=== PATIENT | female | born 1960 ===

== ENCOUNTER 2016-11-06 13:26 | Emergency (ER) | payer BC ==
--- NOTE | 2016-11-06 15:33 | ED ORDER SUMMARY ---
..... Patient: SHARRON AYALA OrderSheet [facility] VisitID: [id number] [address] [place] [address] 56y, F Registration Date/Time: 11/06/2016 ORDER SHEET Weight: 72.5 kg (stated) Allergies: Compazine GENERAL ORDERS: MEDICATION ORDERS: Ibuprofen PO 400 mg (NOW) (15:30 11/06/2016 Alyson HOOVER) (15:59 [facility]) IV FLUIDS: ORDER SHEET NOTES: [Electronically signed by Kerry Hayes (16:06 11/06/2016)] [Electronically signed by Roscoe Carr MD (22:40 11/08/2016)] [Electronically locked/signed by Kerry Hayes (16:06 11/06/2016)]
--- NOTE | 2016-11-06 15:33 | ED NURSING NOTES ---
Clinical Report - Nurses [facility] [address] [place] [address] 11/06/2016 13:29 Patient: SHARRON AYALA TRIAGE Acuity: LEVEL 4. Chief Complaint: MOUTH SORE. 14:08 11/06/16. Alert. No acute distress. --14:08 Mary Tolbert R.N. 14:05 11/06/16. BP: 124/66. HR: 87. RR: 16. O2 saturation: 100% on room air. Temp: 98.6 F (oral). Pain level now 06/25. --14:08 Mary Tolbert R.N. Weight: 72.5 kg stated. Height/Length: 63 inches Per Patient. BMI: 28.3. --14:06 Mary Tolbert R.N. Medications None. --14:07 Mary Tolbert R.N. Allergies Compazine. --14:07 Mary Tolbert R.N. History ( c/o lump in right side of mouth and right shoulder pain. Both have been present for 6 weeks. Pt states she was seen at walk in clinic and they attempted to abraham lump in mouth but were unable to drain anything). Onset. (6 weeks ago). Treatment DAILY RELEASE AND DUPE PRINTER: None. SOCIAL HX: Never smoker. No alcohol use or drug use. ABUSE ASSESSMENT: Abuse assessment: The patient was asked "Do you feel safe in your home?". No report of abuse. FALL RISK ASSESSMENT: Fall risk assessment completed. No fall risk identified. NUTRITIONAL RISK ASSESSMENT: The nutritional risk assessment revealed no deficiencies. FUNCTIONAL ASSESSMENT: Functional assessment: no impairments noted. LEARNING NEEDS ASSESSMENT: The learning needs assessment revealed no barriers. SKIN INTEGRITY ASSESSMENT: Skin integrity risk assessment completed. No skin integrity risk identified. --14:08 Mary Tolbert R.N. PROBLEMS: Sprain. Radius Fracture. Costochondritis. Pedal Edema. Seborrheic Dermatitis. Lice. Abscess. Subungual Hematoma. Finger pain/injury? Rt middle . Wrist Fracture. Anemia. Gastroesophageal Reflux. Gastroenteritis. Renal Insufficiency. Abdominal Pain. Hemorrhoids. UTI - Urinary Tract Infection. Fall. Contusion. Gastritis. Peptic Ulcer Disease. --14:08 Mary Tolbert R.N. ADDITIONAL SURGERIES: Knee Prosthesis. Knee Surgery. Shoulder Surgery. --14:08 Mary Tolbert R.N. Interventions ID band on patient. To treatment room. --14:08 Mary Tolbert R.N. PHYSICAL ASSESSMENT 14:09 11/06/16. Ambulatory to room. GENERAL / NEURO / PSYCH: Alert. Oriented X 4. Appears in no acute distress. HEENT: Pharynx within normal limits. Voice within normal limits. No dental injury noted. ( swelling right cheek). Mucous membranes are pink. CVS: Capillary refill less than 2 seconds. SKIN: Skin is warm and dry. Normal skin turgor. --14:09 Mary Tolbert R.N. NURSING PROGRESS NOTES 14:23 11/06/16. The plan of care for this patient has been created. Patient gowned. Head of bed elevated. Call light placed in reach. Bed placed in lowest position. Brakes of bed on. --14:23 Mary Tolbert R.N. 15:30 11/06/2016 Ibuprofen PO 400 mg given. Allergies verified and confirmed 5 rights. --15:59 Kerry Hayes. DISPOSITION / DISCHARGE Departure time: 1605. Condition at departure: improved and stable. No learning barriers present. Discharge instructions provided and reviewed with the patient. Reviewed medication(s). Patient verbalized understanding. Written instructions provided in Setswana. The patient was discharged by the physician. She was discharged home. She left the Emergency Department ambulatory and via private vehicle. --16:06 Kerry Hayes 16:05 11/06/16. Pain level now 4/10. --16:06 Kerry Hayes. Locked/Released at 11/06/2016 16:06 by Kerry Hayes,
--- NOTE | 2016-11-06 15:33 | ED NURSING NOTES ---
Clinical Report - Nurses [facility] [address] [place] [address] 11/06/2016 13:29 Patient: SHARRON AYALA TRIAGE Acuity: LEVEL 4. Chief Complaint: MOUTH SORE. 14:08 11/06/16. Alert. No acute distress. --14:08 Mary Tolbert R.N. 14:05 11/06/16. BP: 124/66. HR: 87. RR: 16. O2 saturation: 100% on room air. Temp: 98.6 F (oral). Pain level now 06/25. --14:08 Mary Tolbert R.N. Weight: 72.5 kg stated. Height/Length: 63 inches Per Patient. BMI: 28.3. --14:06 Mary Tolbert R.N. Medications None. --14:07 Mary Tolbert R.N. Allergies Compazine. --14:07 Mary Tolbert R.N. History ( c/o lump in right side of mouth and right shoulder pain. Both have been present for 6 weeks. Pt states she was seen at walk in clinic and they attempted to abraham lump in mouth but were unable to drain anything). Onset. (6 weeks ago). Treatment PATIENT SERVICES ASSISTANT: None. SOCIAL HX: Never smoker. No alcohol use or drug use. ABUSE ASSESSMENT: Abuse assessment: The patient was asked "Do you feel safe in your home?". No report of abuse. FALL RISK ASSESSMENT: Fall risk assessment completed. No fall risk identified. NUTRITIONAL RISK ASSESSMENT: The nutritional risk assessment revealed no deficiencies. FUNCTIONAL ASSESSMENT: Functional assessment: no impairments noted. LEARNING NEEDS ASSESSMENT: The learning needs assessment revealed no barriers. SKIN INTEGRITY ASSESSMENT: Skin integrity risk assessment completed. No skin integrity risk identified. --14:08 Mary Tolbert R.N. PROBLEMS: Sprain. Radius Fracture. Costochondritis. Pedal Edema. Seborrheic Dermatitis. Lice. Abscess. Subungual Hematoma. Finger pain/injury? Rt middle . Wrist Fracture. Anemia. Gastroesophageal Reflux. Gastroenteritis. Renal Insufficiency. Abdominal Pain. Hemorrhoids. UTI - Urinary Tract Infection. Fall. Contusion. Gastritis. Peptic Ulcer Disease. --14:08 Mary Tolbert R.N. ADDITIONAL SURGERIES: Knee Prosthesis. Knee Surgery. Shoulder Surgery. --14:08 Mary Tolbert R.N. Interventions ID band on patient. To treatment room. --14:08 Mary Tolbert R.N. PHYSICAL ASSESSMENT 14:09 11/06/16. Ambulatory to room. GENERAL / NEURO / PSYCH: Alert. Oriented X 4. Appears in no acute distress. HEENT: Pharynx within normal limits. Voice within normal limits. No dental injury noted. ( swelling right cheek). Mucous membranes are pink. CVS: Capillary refill less than 2 seconds. SKIN: Skin is warm and dry. Normal skin turgor. --14:09 Mary Tolbert R.N. NURSING PROGRESS NOTES 14:23 11/06/16. The plan of care for this patient has been created. Patient gowned. Head of bed elevated. Call light placed in reach. Bed placed in lowest position. Brakes of bed on. --14:23 Mary Tolbert R.N. 15:30 11/06/2016 Ibuprofen PO 400 mg given. Allergies verified and confirmed 5 rights. --15:59 Kerry Hayes. DISPOSITION / DISCHARGE Departure time: 1605. Condition at departure: improved and stable. No learning barriers present. Discharge instructions provided and reviewed with the patient. Reviewed medication(s). Patient verbalized understanding. Written instructions provided in Kazakh. The patient was discharged by the physician. She was discharged home. She left the Emergency Department ambulatory and via private vehicle. --16:06 Kerry Hayes 16:05 11/06/16. Pain level now 4/10. --16:06 Kerry Hayes. Locked/Released at 11/06/2016 16:06 by Kerry Hayes,
--- NOTE | 2016-11-06 15:33 | ED ORDER SUMMARY ---
..... Patient: SHARRON AYALA OrderSheet [facility] VisitID: [id number] [address] [place] [address] 56y, F Registration Date/Time: 11/06/2016 ORDER SHEET Weight: 72.5 kg (stated) Allergies: Compazine GENERAL ORDERS: MEDICATION ORDERS: Ibuprofen PO 400 mg (NOW) (15:30 11/06/2016 Alyson HOOVER) (15:59 [facility]) IV FLUIDS: ORDER SHEET NOTES: [Electronically signed by Kerry Hayes (16:06 11/06/2016)] [Electronically signed by Roscoe Carr MD (22:40 11/08/2016)] [Electronically locked/signed by Kerry Hayes (16:06 11/06/2016)]
--- NOTE | 2016-11-06 15:33 | ED CLINICAL REPORT ---
Clinical Report - Physicians/Mid Levels [facility] [address] [place] [address] 11/06/2016 13:29 Patient: SHARRON AYALA Time Seen: 15:06. Arrived- By private vehicle. Historian- patient. HISTORY OF PRESENT ILLNESS Chief Complaint: LUMP IN MOUTH and RIGHT SHOULDER PAIN. At its maximum, severity described as moderate. When seen in the E.D., severity described as moderate. Modifying factors- (worse with toughing the mouth mass and moving the shoulder). This started several weeks ago and is still present. It was gradual in onset. No loss of appetite, headache or muscle aches. (1. The patient has had months of a smooth mouth mass. 2. She has had weeks of R shoulder pain without history of trauma. She has not tried home treatment.). Recent medical care: The patient was seen recently by a health care provider. ( [facility]). REVIEW OF SYSTEMS No fever, difficulty breathing or chest pain. PAST HISTORY PCP: [facility]. PROBLEMS: Sprain. Radius Fracture. Costochondritis. Pedal Edema. Seborrheic Dermatitis. Lice. Abscess. Subungual Hematoma. Finger pain/injury? Rt middle . Wrist Fracture. Anemia. Gastroesophageal Reflux. Gastroenteritis. Renal Insufficiency. Abdominal Pain. Hemorrhoids. UTI - Urinary Tract Infection. Fall. Contusion. Gastritis. Peptic Ulcer Disease. --14:08 Mary Tolbert RMarcus. ADDITIONAL SURGERIES: Knee Prosthesis. Knee Surgery. Shoulder Surgery. SOCIAL HISTORY Never smoker. ADDITIONAL NOTES The nursing notes have been reviewed. PHYSICAL EXAM Vital Signs: 11/06/2016 14:05 BP: 124/66. HR: 87. RR: 16. O2 saturation: 100%. Temp: 98.6 F. Appearance: Alert. No acute distress. Eyes: Eyes normal inspection. ENT: (5 mm pedunculated R buccal mucosal mass. Smooth and oval. Looks benign). Neck: No lymphadenopathy. Respiratory: Breath sounds normal. Extremities: Right shoulder: mild tenderness. Neurovascular intact distally. No erythema, swelling, abrasion, ecchymosis or deformity. No joint effusion. (Active and passive ROM R shoulder is painful.). PROGRESS AND PROCEDURES Course of Care: ED is not the proper venue for excising this mass as we have no pathology follow up system. I paged Dr Gruber to discuss the referral with him but he did not return my page. The arm is likely nothing more serious that tendonitis so a trial of Ibuprofen and re-check by PCP is warranted. Physical exam findings are unchanged. Disposition: Discharged. Condition: stable. CLINICAL IMPRESSION Acute tendonitis in the right shoulder. INTRAORAL POLYP. INSTRUCTIONS (TAKE IBUPROFEN 400 MG 4 TIMES A DAY FOR ONE WEEK THEN SEE YOUR CLINIC SEE THE SURGEON OR A DENTIST FOR EXCISION OF THE MOUTH POLYP). Understanding of the discharge instructions verbalized by patient. Follow-up with: Edwin Gruber MD, General Surgeon, , [facility], [address] [place] [address] (Electronically signed by Roscoe Carr MD 11/08/2016 22:40)
--- NOTE | 2016-11-06 15:33 | ED CLINICAL REPORT ---
Clinical Report - Physicians/Mid Levels [facility] [address] [facility] [place] [address] 11/06/2016 13:29 Patient: SHARRON AYALA Time Seen: 15:06. Arrived- By private vehicle. Historian- patient. HISTORY OF PRESENT ILLNESS Chief Complaint: LUMP IN MOUTH and RIGHT SHOULDER PAIN. At its maximum, severity described as moderate. When seen in the E.D., severity described as moderate. Modifying factors- (worse with toughing the mouth mass and moving the shoulder). This started several weeks ago and is still present. It was gradual in onset. No loss of appetite, headache or muscle aches. (1. The patient has had months of a smooth mouth mass. 2. She has had weeks of R shoulder pain without history of trauma. She has not tried home treatment.). Recent medical care: The patient was seen recently by a health care provider. ( [facility]). REVIEW OF SYSTEMS No fever, difficulty breathing or chest pain. PAST HISTORY PCP: [facility]. PROBLEMS: Sprain. Radius Fracture. Costochondritis. Pedal Edema. Seborrheic Dermatitis. Lice. Abscess. Subungual Hematoma. Finger pain/injury? Rt middle . Wrist Fracture. Anemia. Gastroesophageal Reflux. Gastroenteritis. Renal Insufficiency. Abdominal Pain. Hemorrhoids. UTI - Urinary Tract Infection. Fall. Contusion. Gastritis. Peptic Ulcer Disease. --14:08 Mary Tolbert RMarcus. ADDITIONAL SURGERIES: Knee Prosthesis. Knee Surgery. Shoulder Surgery. SOCIAL HISTORY Never smoker. ADDITIONAL NOTES The nursing notes have been reviewed. PHYSICAL EXAM Vital Signs: 11/06/2016 14:05 BP: 124/66. HR: 87. RR: 16. O2 saturation: 100%. Temp: 98.6 F. Appearance: Alert. No acute distress. Eyes: Eyes normal inspection. ENT: (5 mm pedunculated R buccal mucosal mass. Smooth and oval. Looks benign). Neck: No lymphadenopathy. Respiratory: Breath sounds normal. Extremities: Right shoulder: mild tenderness. Neurovascular intact distally. No erythema, swelling, abrasion, ecchymosis or deformity. No joint effusion. (Active and passive ROM R shoulder is painful.). PROGRESS AND PROCEDURES Course of Care: ED is not the proper venue for excising this mass as we have no pathology follow up system. I paged Dr Gruber to discuss the referral with him but he did not return my page. The arm is likely nothing more serious that tendonitis so a trial of Ibuprofen and re-check by PCP is warranted. Physical exam findings are unchanged. Disposition: Discharged. Condition: stable. CLINICAL IMPRESSION Acute tendonitis in the right shoulder. INTRAORAL POLYP. INSTRUCTIONS (TAKE IBUPROFEN 400 MG 4 TIMES A DAY FOR ONE WEEK THEN SEE YOUR CLINIC SEE THE SURGEON OR A DENTIST FOR EXCISION OF THE MOUTH POLYP). Understanding of the discharge instructions verbalized by patient. Follow-up with: Edwin Gruber MD, General Surgeon, , [facility], [address] [place] [address] (Electronically signed by Roscoe Carr MD 11/08/2016 22:40)
--- NOTE | 2016-11-08 22:40 | ED DISCHARGE INSTRUCTIONS ---
Patient: SHARRON AYALA General Instructions [facility] VisitID: [id number] [address] [place] [id number] 56y, F Registration Date/Time: 11/06/2016 Acute tendonitis in the right shoulder. INTRAORAL POLYP. INSTRUCTIONS (TAKE IBUPROFEN 400 MG 4 TIMES A DAY FOR ONE WEEK THEN SEE YOUR CLINIC SEE THE SURGEON OR A DENTIST FOR EXCISION OF THE MOUTH POLYP). Understanding of the discharge instructions verbalized by patient. Follow-up with: Edwin Gruber MD, General Surgeon, , [facility], [address] [facility] [address], [facility] [address] ADDITIONAL INFORMATION Tendonitis A tendon is the thick fibrous cord that joins muscle to bone and causes joints to move. Tendonitis is inflammation of the tendon which may be due to overuse, injury or infection. This usually involves the shoulders, forearm, wrist, hands and foot. Symptoms include local pain, swelling and tenderness to the touch. Movement of the involved joint increases the pain. Tendonitis requires about 4 to 6 weeks to heal. It is treated by preventing motion of the tendon with a splint or brace and use of anti-inflammatory medicine. Home Care: Apply an ice pack (ice cubes in a plastic bag, wrapped in a towel) over the injured area for 20 minutes every 1-2 hours the first day for pain relief. Continue this 3-4 times a day until the pain and swelling goes away. Rest the inflamed joint and protect it from movement. You may use ibuprofen (Motrin, Advil) or naproxen (Aleve, Naprosyn) to treat pain and inflammation, unless another medicine was prescribed. If you can't take these medicines, acetaminophen (Tylenol) may help with the pain, but does not treat inflammation. [NOTE : If you have chronic liver or kidney disease or ever had a stomach ulcer or GI bleeding, talk with your doctor before using these medicines.] As your symptoms improve, begin gradual motion at the involved joint. Follow Up With Your Doctor If Not Improving After The First Five Days Of Treatment. Get Prompt Medical Attention If Any Of The Following Occur: Redness over the painful area Increasing pain or swelling at the joint Fever of 100.4F (38C) or higher, or as directed by your healthcare provider You have been given the following additional information: Tendonitis (Electronically signed by Roscoe Carr MD 11/08/2016 22:40)
--- NOTE | 2016-11-08 22:40 | ED MED RECONCILIATION SUMMARY ---
Patient: SHARRON AYALA Medication Reconciliation Report [facility] VisitID: [id number] [address] [place] [address] 56y, F Registration Date/Time: 11/06/2016 Weight: 72.5 kg Height/Length: 63 in. BMI: 28.3 ALLERGIES: Compazine The patient's Home Medications are listed below: NONE. The source(s) of the original Home Medication information: Not obtained. The following Medications were given to the patient in the Emergency Department: Ibuprofen [PO] PO 400 mg, administered: 11/06/2016 3:30:00 PM The following Medications were prescribed to the patient: None.
--- NOTE | 2016-11-08 22:40 | ED DISCHARGE INSTRUCTIONS ---
Patient: SHARRON AYALA General Instructions [facility] VisitID: [id number] [address] [place] [id number] 56y, F Registration Date/Time: 11/06/2016 Acute tendonitis in the right shoulder. INTRAORAL POLYP. INSTRUCTIONS (TAKE IBUPROFEN 400 MG 4 TIMES A DAY FOR ONE WEEK THEN SEE YOUR CLINIC SEE THE SURGEON OR A DENTIST FOR EXCISION OF THE MOUTH POLYP). Understanding of the discharge instructions verbalized by patient. Follow-up with: Edwin Gruber MD, General Surgeon, , [facility], [address] [facility] [address], [facility] [address] ADDITIONAL INFORMATION Tendonitis A tendon is the thick fibrous cord that joins muscle to bone and causes joints to move. Tendonitis is inflammation of the tendon which may be due to overuse, injury or infection. This usually involves the shoulders, forearm, wrist, hands and foot. Symptoms include local pain, swelling and tenderness to the touch. Movement of the involved joint increases the pain. Tendonitis requires about 4 to 6 weeks to heal. It is treated by preventing motion of the tendon with a splint or brace and use of anti-inflammatory medicine. Home Care: Apply an ice pack (ice cubes in a plastic bag, wrapped in a towel) over the injured area for 20 minutes every 1-2 hours the first day for pain relief. Continue this 3-4 times a day until the pain and swelling goes away. Rest the inflamed joint and protect it from movement. You may use ibuprofen (Motrin, Advil) or naproxen (Aleve, Naprosyn) to treat pain and inflammation, unless another medicine was prescribed. If you can't take these medicines, acetaminophen (Tylenol) may help with the pain, but does not treat inflammation. [NOTE : If you have chronic liver or kidney disease or ever had a stomach ulcer or GI bleeding, talk with your doctor before using these medicines.] As your symptoms improve, begin gradual motion at the involved joint. Follow Up With Your Doctor If Not Improving After The First Five Days Of Treatment. Get Prompt Medical Attention If Any Of The Following Occur: Redness over the painful area Increasing pain or swelling at the joint Fever of 100.4F (38C) or higher, or as directed by your healthcare provider You have been given the following additional information: Tendonitis (Electronically signed by Roscoe Carr MD 11/08/2016 22:40)
--- NOTE | 2016-11-08 22:40 | ED MAR SUMMARY ---
..... Medication Administration Record [facility] [address] [place] [address] Patient: SHARRON AYALA Visit ID: [id number] 56y, F Weight: 72.5 kg Height/Length: 63 in BMI: 28.3 ALLERGIES: Compazine Given 15:30 11/06/2016 Kerry Hayes, Medication Administered: IBUPROFEN [PO], Dose: 400 mg PO. Medication Ordered: Ibuprofen PO 400 mg (NOW).
--- NOTE | 2016-11-08 22:40 | ED MED RECONCILIATION SUMMARY ---
Patient: SHARRON AYALA Medication Reconciliation Report [facility] VisitID: [id number] [address] [place] [address] 56y, F Registration Date/Time: 11/06/2016 Weight: 72.5 kg Height/Length: 63 in. BMI: 28.3 ALLERGIES: Compazine The patient's Home Medications are listed below: NONE. The source(s) of the original Home Medication information: Not obtained. The following Medications were given to the patient in the Emergency Department: Ibuprofen [PO] PO 400 mg, administered: 11/06/2016 3:30:00 PM The following Medications were prescribed to the patient: None.
--- NOTE | 2016-11-08 22:40 | ED MAR SUMMARY ---
..... Medication Administration Record [facility] [address] [place] [address] Patient: SHARRON AYALA Visit ID: [id number] 56y, F Weight: 72.5 kg Height/Length: 63 in BMI: 28.3 ALLERGIES: Compazine Given 15:30 11/06/2016 Kerry Hayes, Medication Administered: IBUPROFEN [PO], Dose: 400 mg PO. Medication Ordered: Ibuprofen PO 400 mg (NOW).
== END 2016-11-06 16:05 | disposition home or self-care (01) ==
LOC: ED SRH 13:26
DX: M75.81 Other shoulder lesions, right shoulder (principal); K06.8 Other specified disorders of gingiva and edentulous alveolar ridge; Z88.8 Allergy status to other drugs, medicaments and biological substances

== ENCOUNTER 2016-12-12 16:47 | Emergency (ER) | payer BC ==
--- NOTE | 2016-12-12 17:19 | ED CLINICAL REPORT ---
Clinical Report - Physicians/Mid Levels [facility] [address] [place] [address] 12/12/2016 16:50 [id number] Time Seen: 17:06 Dec 12 2016. Arrived- By private vehicle. Historian- patient. HISTORY OF PRESENT ILLNESS Chief Complaint: DENTAL PAIN. This started just prior to arrival and is still present. Pain described as mild. (patient status post dental procedure on the , has had pain since, reports insertion of partial teeth/ bridges. NO diff swallowing. Unable to find ride to return to dentist. No cough. No new fevers/ chills. No facial swelling. No rash.). REVIEW OF SYSTEMS No fever, cough, difficulty breathing, abdominal pain or headache. No joint pain. All systems otherwise negative, except as recorded above. PAST HISTORY Problems: Tendonitis. Sprain. Radius Fracture. Costochondritis. Pedal Edema. Seborrheic Dermatitis. Lice. Abscess. Subungual Hematoma. Finger pain/injury? Rt middle . Wrist Fracture. Tetanus Status. Anemia. Gastroesophageal Reflux. Gastroenteritis. Immunizations. Renal Insufficiency. Abdominal Pain. Hemorrhoids. UTI - Urinary Tract Infection. Fall. Contusion. Gastritis. Peptic Ulcer Disease. LNMP - Last Normal Menstrual Period. Additional Surgeries: Knee Prosthesis. Knee Surgery. Shoulder Surgery. Medications: None. Allergies: Compazine. SOCIAL HISTORY Never smoker. No alcohol use or drug use. ADDITIONAL NOTES The nursing notes have been reviewed. PHYSICAL EXAM Vital Signs: 12/12/2016 17:22 BP: 124/68. HR: 72. RR: 16. O2 saturation: 100%. Temp: 98.2 F. Pain level now: 5/10. Appearance: Alert. No acute distress. Head: Normal external inspection. ENT: Dental tenderness (right side lower). Nose normal. Lips normal. No trismus present. Neck: Trachea midline. No adenopathy. No thyromegaly. CVS: Normal heart rate and rhythm. PMI not displaced laterally. Respiratory: No respiratory distress. Breath sounds normal. No rales. Skin: Normal skin color. PROGRESS AND PROCEDURES Course of Care: patient afebrile with no signs of Mehran angina. No cough. Tolerating her own secretions well. Stable. Follow up outpatient. Patient is stable. Patient/family counseled. Disposition: Discharged. CLINICAL IMPRESSION Moderate dental pain. INSTRUCTIONS Drink plenty of fluids. Prescription Medications: Hydrocodone/APAP 5mg / 325mg: take 1 orally every 6 hours as needed for pain. Dispense ten (10). No refill. Amoxicillin 500 mg tablets: Take 1 orally every 8 hours for 10 days. Dispense thirty (30). No refills. Follow-up: Follow up with a dentist. (Electronically signed by Brooklynn Zhao P.A.-C 12/12/2016 17:59)
--- NOTE | 2016-12-12 17:19 | ED NURSING NOTES ---
Clinical Report - Nurses [facility] [place] [address] 12/12/2016 16:50 Patient: SHARRON AYALA TRIAGE Triage time 16:57. Acuity: LEVEL 4. Chief Complaint: (MOUTH PAIN). 16:58 12/12/16. 16:58 12/12/16. Alert. No acute distress. DEN COMA SCORE: Den Coma Scale: 15- eyes open spontaneously (4); best verbal response- oriented x 4 (5); best motor response- obeys commands (6). REVISED TRAUMA SCORE: Revised trauma score. --17:01 Rosas Hebert R.N. 16:57 12/12/16. BP: 136/67. HR: 79. RR: 14. O2 saturation: 100% on room air. Temp: 98 F (oral). Pain level now: 06/25. --17:01 Rosas Hebert R.N. Weight: 72.5 kg stated. Height/Length: 63 inches Per Patient. BMI: 28.3. --16:57 Rosas Hebert R.N. Medications None. --16:58 Rosas Hebert R.N. Medication/allergy information source: the patient. --17:01 Rosas Hebert R.N. Allergies Compazine. --16:58 Rosas Hebert R.N. History Arrived by private vehicle, and accompanied by family. Primary physician (AMENA PALMER). 16:58 12/12/16. ( Mouth pain since Saturday, pt had a dental procedure completed.). Treatment AUTOMOTIVE COLLISION ESTIMATOR: (T3 and Motrin). PAST MEDICAL HX: Immunizations not up to date. SOCIAL HX: Never smoker. No alcohol use or drug use. No infectious disease exposure. ABUSE ASSESSMENT: No report of abuse. FALL RISK ASSESSMENT: Fall risk assessment completed. No fall risk identified. NUTRITIONAL RISK ASSESSMENT: The nutritional risk assessment revealed no deficiencies. FUNCTIONAL ASSESSMENT: Functional assessment: no impairments noted. LEARNING NEEDS ASSESSMENT: The learning needs assessment revealed no barriers. SKIN INTEGRITY ASSESSMENT: Skin integrity risk assessment completed. No skin integrity risk identified. --17:01 Rosas Hebert R.N. PROBLEMS: Tendonitis. Sprain. Radius Fracture. Costochondritis. Pedal Edema. Seborrheic Dermatitis. Lice. Abscess. Subungual Hematoma. Finger pain/injury? Rt middle . Wrist Fracture. Tetanus Status. Anemia. Gastroesophageal Reflux. Gastroenteritis. Renal Insufficiency. Abdominal Pain. Hemorrhoids. UTI - Urinary Tract Infection. Fall. Contusion. Gastritis. Peptic Ulcer Disease. --16:59 Rosas Hebert R.N. ADDITIONAL SURGERIES: Knee Prosthesis. Knee Surgery. Shoulder Surgery. --16:59 Rosas Hebert R.N. Assessment 16:58 12/12/16. --17:01 Rosas Hebert R.N. Interventions 16:58 12/12/16. 16:58 12/12/16. ID and allergy band on patient. To treatment room. --17:01 Rosas Hebert R.N. PHYSICAL ASSESSMENT 16:59 12/12/16. Ambulatory to room. GENERAL / NEURO / PSYCH: Alert. Oriented X 4. Appears in no acute distress. RESPIRATORY: Respirations not labored. CVS: Capillary refill less than 2 seconds. Pulses within normal limits. SKIN: Skin is warm and dry. --16:59 Rosas Hebert R.N. NURSING PROGRESS NOTES 16:59 12/12/16. The plan of care for this patient has been created. Head of bed elevated. Two patient identifiers checked. Call light placed in reach. Side rails up x 2. Brakes of bed on. Brakes of chair on. --16:59 Rosas Hebert R.N. 16:59 12/12/16. Patient ready for evaluation- chart flagged and notification provided. --16:59 Rosas Hebert R.N. DISPOSITION / DISCHARGE 17:23 12/12/16. Condition at departure: improved. The goals identified in the patient's plan of care were met. No learning barriers present. Discharge instructions provided and reviewed with the patient. Reviewed warnings. Reviewed medication(s). Treatments reviewed. Patient verbalized understanding. Written instructions provided in Slovenian. The patient was discharged by the physician. She was discharged home and accompanied by family. She left the Emergency Department ambulatory and via private vehicle. Family member driving. FALL RISK ASSESSMENT: Fall risk assessment completed. No fall risk identified. --17:23 Rosas Hebert R.N. 17:22 12/12/16. BP: 124/68. HR: 72. RR: 16. O2 saturation: 100% on room air. Temp: 98.2 F (oral). Pain level now: 10. --17:23 Rosas Hebert R.N. 17:23 12/12/16. Departure time: 17:23. --17:23 Rosas Hebert R.N. Locked/Released at 12/12/2016 17:28 by Rosas Hebert R.N.
--- NOTE | 2016-12-12 17:19 | ED NURSING NOTES ---
Clinical Report - Nurses [facility] [place] [address] 12/12/2016 16:50 Patient: SHARRON AYALA TRIAGE Triage time 16:57. Acuity: LEVEL 4. Chief Complaint: (MOUTH PAIN). 16:58 12/12/16. 16:58 12/12/16. Alert. No acute distress. DEN COMA SCORE: Den Coma Scale: 15- eyes open spontaneously (4); best verbal response- oriented x 4 (5); best motor response- obeys commands (6). REVISED TRAUMA SCORE: Revised trauma score. --17:01 Rosas Hebert R.N. 16:57 12/12/16. BP: 136/67. HR: 79. RR: 14. O2 saturation: 100% on room air. Temp: 98 F (oral). Pain level now: 06/25. --17:01 Rosas Hebert R.N. Weight: 72.5 kg stated. Height/Length: 63 inches Per Patient. BMI: 28.3. --16:57 Rosas Hebert R.N. Medications None. --16:58 Rosas Hebert R.N. Medication/allergy information source: the patient. --17:01 Rosas Hebert R.N. Allergies Compazine. --16:58 Rosas Hebert R.N. History Arrived by private vehicle, and accompanied by family. Primary physician (AMENA PALMER). 16:58 12/12/16. ( Mouth pain since Saturday, pt had a dental procedure completed.). Treatment DIRECTOR RADIO: (T3 and Motrin). PAST MEDICAL HX: Immunizations not up to date. SOCIAL HX: Never smoker. No alcohol use or drug use. No infectious disease exposure. ABUSE ASSESSMENT: No report of abuse. FALL RISK ASSESSMENT: Fall risk assessment completed. No fall risk identified. NUTRITIONAL RISK ASSESSMENT: The nutritional risk assessment revealed no deficiencies. FUNCTIONAL ASSESSMENT: Functional assessment: no impairments noted. LEARNING NEEDS ASSESSMENT: The learning needs assessment revealed no barriers. SKIN INTEGRITY ASSESSMENT: Skin integrity risk assessment completed. No skin integrity risk identified. --17:01 Rosas Hebert R.N. PROBLEMS: Tendonitis. Sprain. Radius Fracture. Costochondritis. Pedal Edema. Seborrheic Dermatitis. Lice. Abscess. Subungual Hematoma. Finger pain/injury? Rt middle . Wrist Fracture. Tetanus Status. Anemia. Gastroesophageal Reflux. Gastroenteritis. Renal Insufficiency. Abdominal Pain. Hemorrhoids. UTI - Urinary Tract Infection. Fall. Contusion. Gastritis. Peptic Ulcer Disease. --16:59 Rosas Hebert R.N. ADDITIONAL SURGERIES: Knee Prosthesis. Knee Surgery. Shoulder Surgery. --16:59 Rosas Hebert R.N. Assessment 16:58 12/12/16. --17:01 Rosas Hebert R.N. Interventions 16:58 12/12/16. 16:58 12/12/16. ID and allergy band on patient. To treatment room. --17:01 Rosas Hebert R.N. PHYSICAL ASSESSMENT 16:59 12/12/16. Ambulatory to room. GENERAL / NEURO / PSYCH: Alert. Oriented X 4. Appears in no acute distress. RESPIRATORY: Respirations not labored. CVS: Capillary refill less than 2 seconds. Pulses within normal limits. SKIN: Skin is warm and dry. --16:59 Rosas Hebert R.N. NURSING PROGRESS NOTES 16:59 12/12/16. The plan of care for this patient has been created. Head of bed elevated. Two patient identifiers checked. Call light placed in reach. Side rails up x 2. Brakes of bed on. Brakes of chair on. --16:59 Rosas Hebert R.N. 16:59 12/12/16. Patient ready for evaluation- chart flagged and notification provided. --16:59 Rosas Hebert R.N. DISPOSITION / DISCHARGE 17:23 12/12/16. Condition at departure: improved. The goals identified in the patient's plan of care were met. No learning barriers present. Discharge instructions provided and reviewed with the patient. Reviewed warnings. Reviewed medication(s). Treatments reviewed. Patient verbalized understanding. Written instructions provided in Welsh. The patient was discharged by the physician. She was discharged home and accompanied by family. She left the Emergency Department ambulatory and via private vehicle. Family member driving. FALL RISK ASSESSMENT: Fall risk assessment completed. No fall risk identified. --17:23 Rosas Hebert R.N. 17:22 12/12/16. BP: 124/68. HR: 72. RR: 16. O2 saturation: 100% on room air. Temp: 98.2 F (oral). Pain level now: 10. --17:23 Rosas Hebert R.N. 17:23 12/12/16. Departure time: 17:23. --17:23 Rosas Hebert R.N. Locked/Released at 12/12/2016 17:28 by Rosas Hebert R.N.
--- NOTE | 2016-12-12 17:19 | ED CLINICAL REPORT ---
Clinical Report - Physicians/Mid Levels [facility] [address] [place] [address] 12/12/2016 16:50 [id number] Time Seen: 17:06 Dec 12 2016. Arrived- By private vehicle. Historian- patient. HISTORY OF PRESENT ILLNESS Chief Complaint: DENTAL PAIN. This started just prior to arrival and is still present. Pain described as mild. (patient status post dental procedure on the , has had pain since, reports insertion of partial teeth/ bridges. NO diff swallowing. Unable to find ride to return to dentist. No cough. No new fevers/ chills. No facial swelling. No rash.). REVIEW OF SYSTEMS No fever, cough, difficulty breathing, abdominal pain or headache. No joint pain. All systems otherwise negative, except as recorded above. PAST HISTORY Problems: Tendonitis. Sprain. Radius Fracture. Costochondritis. Pedal Edema. Seborrheic Dermatitis. Lice. Abscess. Subungual Hematoma. Finger pain/injury? Rt middle . Wrist Fracture. Tetanus Status. Anemia. Gastroesophageal Reflux. Gastroenteritis. Immunizations. Renal Insufficiency. Abdominal Pain. Hemorrhoids. UTI - Urinary Tract Infection. Fall. Contusion. Gastritis. Peptic Ulcer Disease. LNMP - Last Normal Menstrual Period. Additional Surgeries: Knee Prosthesis. Knee Surgery. Shoulder Surgery. Medications: None. Allergies: Compazine. SOCIAL HISTORY Never smoker. No alcohol use or drug use. ADDITIONAL NOTES The nursing notes have been reviewed. PHYSICAL EXAM Vital Signs: 12/12/2016 17:22 BP: 124/68. HR: 72. RR: 16. O2 saturation: 100%. Temp: 98.2 F. Pain level now: 5/10. Appearance: Alert. No acute distress. Head: Normal external inspection. ENT: Dental tenderness (right side lower). Nose normal. Lips normal. No trismus present. Neck: Trachea midline. No adenopathy. No thyromegaly. CVS: Normal heart rate and rhythm. PMI not displaced laterally. Respiratory: No respiratory distress. Breath sounds normal. No rales. Skin: Normal skin color. PROGRESS AND PROCEDURES Course of Care: patient afebrile with no signs of Mehran angina. No cough. Tolerating her own secretions well. Stable. Follow up outpatient. Patient is stable. Patient/family counseled. Disposition: Discharged. CLINICAL IMPRESSION Moderate dental pain. INSTRUCTIONS Drink plenty of fluids. Prescription Medications: Hydrocodone/APAP 5mg / 325mg: take 1 orally every 6 hours as needed for pain. Dispense ten (10). No refill. Amoxicillin 500 mg tablets: Take 1 orally every 8 hours for 10 days. Dispense thirty (30). No refills. Follow-up: Follow up with a dentist. (Electronically signed by Brooklynn Zhao P.A.-C 12/12/2016 17:59)
--- NOTE | 2016-12-12 17:59 | ED MED RECONCILIATION SUMMARY ---
Patient: SHARRON AYALA Medication Reconciliation Report [facility] VisitID: [id number] [address] [place] [address] 56y, F Registration Date/Time: 12/12/2016 Weight: 72.5 kg Height/Length: 63 in. BMI: 28.3 ALLERGIES: Compazine The patient's Home Medications are listed below: NONE. The source(s) of the original Home Medication information: patient The following Medications were given to the patient in the Emergency Department: None. The following Medications were prescribed to the patient: Hydrocodone/APAP 5mg / 325mg: take 1 orally every 6 hours as needed for pain. Dispense ten (10). No refill. -- Brooklynn Zhao, P.A.-Delfino Amoxicillin 500 mg tablets: Take 1 orally every 8 hours for 10 days. Dispense thirty (30). No refills. -- Brooklynn Zhao, P.A.-C
--- NOTE | 2016-12-12 17:59 | ED DISCHARGE INSTRUCTIONS ---
Patient: SHARRON AYALA General Instructions [facility] VisitID: [id number] [place] [address] 56y, F Registration Date/Time: 12/12/2016 Moderate dental pain. INSTRUCTIONS Drink plenty of fluids. Prescription Medications: Hydrocodone/APAP 5mg / 325mg: take 1 orally every 6 hours as needed for pain. Dispense ten (10). No refill. Amoxicillin 500 mg tablets: Take 1 orally every 8 hours for 10 days. Dispense thirty (30). No refills. Follow-up: Follow up with a dentist. ADDITIONAL INFORMATION Dental Pain A crack or cavity in the tooth, which exposes the sensitive inner area of the tooth can cause tooth pain. An infection in the gum or the root of the tooth can cause pain and swelling. The pain is often made worse by drinking hot or cold fluids, or biting on hard foods. Pain may spread from the tooth to the ear or jaw on the same side. Home Care: Avoid hot and cold foods and liquids since your tooth may be sensitive to temperature changes. If your tooth is chipped or cracked, or if there is a large open cavity, apply OIL OF CLOVES (available [id number]-[id number] in drug stores) directly to the tooth to reduce pain. Some pharmacies carry an [id number] "toothache kit." This contains a paste, which can be applied over the exposed tooth to decrease sensitivity. A cold pack on your jaw over the sore area may help reduce pain. You may use acetaminophen (Tylenol) or ibuprofen (Motrin, Advil) to control pain, unless another medicine was prescribed. [ NOTE: If you have chronic liver or kidney disease or ever had a stomach ulcer or GI bleeding, talk with your doctor before using these medicines.] If you have signs of an infection, an antibiotic will be given. Take it as directed. Follow-Up as directed with a dentist. Your pain may go away with the treatment given. However, only a dentist can fully evaluate and treat the cause and prevent the pain from coming back again. TOOTHACHE IS A SIGN OF DISEASE IN YOUR TOOTH AND SHOULD BE EXAMINED AND TREATED BY A DENTIST. Get Prompt Medical Attention if any of the following occur: Your face becomes swollen or red Pain worsens or spreads to the neck Fever over 100.4 F (38.0 C) Unusual drowsiness; headache or stiff neck; weakness or fainting Pus drains from the tooth Difficulty swallowing or breathing Hydrocodone Bitartrate, Acetaminophen Oral tablet What is this medicine? ACETAMINOPHEN; HYDROCODONE (a set a ZAHIDA holden fen; william droe KOE done) is a pain reliever. It is used to treat mild to moderate pain. How should I use this medicine? Take this medicine by mouth. Swallow it with a full glass of water. Follow the directions on the prescription label. If the medicine upsets your stomach, take the medicine with food or milk. Do not take more than you are told to take. Talk to your supply chain procurement manager regarding the use of this medicine in children. This medicine is not approved for use in children. What side effects may I notice from receiving this medicine? Side effects that you should report to your doctor or health healthcare project manager as soon as possible: allergic reactions like skin rash, itching or hives, swelling of the face, lips, or tongue breathing problems confusion feeling faint or lightheaded, falls stomach pain yellowing of the eyes or skin Side effects that usually do not require medical attention (report to your doctor or health healthcare project manager if they continue or are bothersome): nausea, vomiting stomach upset What may interact with this medicine? alcohol antihistamines isoniazid medicines for depression, anxiety, or psychotic disturbances medicines for sleep muscle relaxants naltrexone narcotic medicines (opiates) for pain phenobarbital ritonavir tramadol What if I miss a dose? If you miss a dose, take it as soon as you can. If it is almost time for your next dose, take only that dose. Do not take double or extra doses. Where should I keep my medicine? Keep out of the reach of children. This medicine can be abused. Keep your medicine in a safe place to protect it from theft. Do not share this medicine with anyone. Selling or giving away this medicine is dangerous and against the law. Store at room temperature between 15 and 30 degrees C (59 and 86 degrees F). Protect from light. Keep container tightly closed. Throw away any unused medicine after the expiration date. Discard unused medicine and used packaging carefully. Pets and children can be harmed if they find used or lost packages. What should I tell my health care provider before I take this medicine? They need to know if you have any of these conditions: brain tumor Crohn's disease, inflammatory bowel disease, or ulcerative colitis drink more than 3 alcohol-containing drinks per day drug abuse or addiction head injury heart or circulation problems kidney disease or problems going to the bathroom liver disease lung disease, asthma, or breathing problems an unusual or allergic reaction to acetaminophen, hydrocodone, other opioid analgesics, other medicines, foods, dyes, or preservatives or trying to get breast-feeding What should I watch for while using this medicine? Tell your doctor or health healthcare project manager if your pain does not go away, if it gets worse, or if you have new or a different type of pain. You may develop tolerance to the medicine. Tolerance means that you will need a higher dose of the medicine for pain relief. Tolerance is normal and is expected if you take the medicine for a long time. Do not suddenly stop taking your medicine because you may develop a severe reaction. Your body becomes used to the medicine. This does NOT mean you are addicted. Addiction is a behavior related to getting and using a drug for a non-medical reason. If you have pain, you have a medical reason to take pain medicine. Your doctor will tell you how much medicine to take. If your doctor wants you to stop the medicine, the dose will be slowly lowered over time to avoid any side effects. You may get drowsy or dizzy when you first start taking the medicine or change doses. Do not drive, use machinery, or do anything that may be dangerous until you know how the medicine affects you. Stand or sit up slowly. There are different types of narcotic medicines (opiates) for pain. If you take more than one type at the same time, you may have more side effects. Give your health care provider a list of all medicines you use. Your doctor will tell you how much medicine to take. Do not take more medicine than directed. Call emergency for help if you have problems breathing. The medicine will cause constipation. Try to have a bowel movement at least every 2 to 3 days. If you do not have a bowel movement for 3 days, call your doctor or health healthcare project manager. Too much acetaminophen can be very dangerous. Do not take Tylenol (acetaminophen) or medicines that contain acetaminophen with this medicine. Many non-prescription medicines contain acetaminophen. Always read the labels carefully. You have been given the following additional information: Dental Pain Hydrocodone Bitartrate, Acetaminophen Oral tablet (Electronically signed by Brooklynn Zhao P.A.-C 12/12/2016 17:59)
--- NOTE | 2016-12-12 17:59 | ED MED RECONCILIATION SUMMARY ---
Patient: SHARRON AYALA Medication Reconciliation Report [facility] VisitID: [id number] [address] [place] [address] 56y, F Registration Date/Time: 12/12/2016 Weight: 72.5 kg Height/Length: 63 in. BMI: 28.3 ALLERGIES: Compazine The patient's Home Medications are listed below: NONE. The source(s) of the original Home Medication information: patient The following Medications were given to the patient in the Emergency Department: None. The following Medications were prescribed to the patient: Hydrocodone/APAP 5mg / 325mg: take 1 orally every 6 hours as needed for pain. Dispense ten (10). No refill. -- Brooklynn Zhao, P.A.-Delfino Amoxicillin 500 mg tablets: Take 1 orally every 8 hours for 10 days. Dispense thirty (30). No refills. -- Brooklynn Zhao, P.A.-C
--- NOTE | 2016-12-12 17:59 | ED MAR SUMMARY ---
..... Medication Administration Record [facility] [address] [place], [place] [id number] Patient: SHARRON AYALA Visit ID: [id number] 56y, F Weight: 72.5 kg Height/Length: 63 in BMI: 28.3 ALLERGIES: Compazine
--- NOTE | 2016-12-12 17:59 | ED MAR SUMMARY ---
..... Medication Administration Record [facility] [address] [place], [place] [id number] Patient: SHARRON AYALA Visit ID: [id number] 56y, F Weight: 72.5 kg Height/Length: 63 in BMI: 28.3 ALLERGIES: Compazine
--- NOTE | 2016-12-12 17:59 | ED DISCHARGE INSTRUCTIONS ---
Patient: SHARRON AYALA General Instructions [facility] VisitID: [id number] [place] [address] 56y, F Registration Date/Time: 12/12/2016 Moderate dental pain. INSTRUCTIONS Drink plenty of fluids. Prescription Medications: Hydrocodone/APAP 5mg / 325mg: take 1 orally every 6 hours as needed for pain. Dispense ten (10). No refill. Amoxicillin 500 mg tablets: Take 1 orally every 8 hours for 10 days. Dispense thirty (30). No refills. Follow-up: Follow up with a dentist. ADDITIONAL INFORMATION Dental Pain A crack or cavity in the tooth, which exposes the sensitive inner area of the tooth can cause tooth pain. An infection in the gum or the root of the tooth can cause pain and swelling. The pain is often made worse by drinking hot or cold fluids, or biting on hard foods. Pain may spread from the tooth to the ear or jaw on the same side. Home Care: Avoid hot and cold foods and liquids since your tooth may be sensitive to temperature changes. If your tooth is chipped or cracked, or if there is a large open cavity, apply OIL OF CLOVES (available [id number] in drug stores) directly to the tooth to reduce pain. Some pharmacies carry an [id number] "toothache kit." This contains a paste, which can be applied over the exposed tooth to decrease sensitivity. A cold pack on your jaw over the sore area may help reduce pain. You may use acetaminophen (Tylenol) or ibuprofen (Motrin, Advil) to control pain, unless another medicine was prescribed. [ NOTE: If you have chronic liver or kidney disease or ever had a stomach ulcer or GI bleeding, talk with your doctor before using these medicines.] If you have signs of an infection, an antibiotic will be given. Take it as directed. Follow-Up as directed with a dentist. Your pain may go away with the treatment given. However, only a dentist can fully evaluate and treat the cause and prevent the pain from coming back again. TOOTHACHE IS A SIGN OF DISEASE IN YOUR TOOTH AND SHOULD BE EXAMINED AND TREATED BY A DENTIST. Get Prompt Medical Attention if any of the following occur: Your face becomes swollen or red Pain worsens or spreads to the neck Fever over 100.4 F (38.0 C) Unusual drowsiness; headache or stiff neck; weakness or fainting Pus drains from the tooth Difficulty swallowing or breathing Hydrocodone Bitartrate, Acetaminophen Oral tablet What is this medicine? ACETAMINOPHEN; HYDROCODONE (a set a ZAHIDA holden fen; william droe KOE done) is a pain reliever. It is used to treat mild to moderate pain. How should I use this medicine? Take this medicine by mouth. Swallow it with a full glass of water. Follow the directions on the prescription label. If the medicine upsets your stomach, take the medicine with food or milk. Do not take more than you are told to take. Talk to your cover creaser regarding the use of this medicine in children. This medicine is not approved for use in children. What side effects may I notice from receiving this medicine? Side effects that you should report to your doctor or health home care attendant as soon as possible: allergic reactions like skin rash, itching or hives, swelling of the face, lips, or tongue breathing problems confusion feeling faint or lightheaded, falls stomach pain yellowing of the eyes or skin Side effects that usually do not require medical attention (report to your doctor or health home care attendant if they continue or are bothersome): nausea, vomiting stomach upset What may interact with this medicine? alcohol antihistamines isoniazid medicines for depression, anxiety, or psychotic disturbances medicines for sleep muscle relaxants naltrexone narcotic medicines (opiates) for pain phenobarbital ritonavir tramadol What if I miss a dose? If you miss a dose, take it as soon as you can. If it is almost time for your next dose, take only that dose. Do not take double or extra doses. Where should I keep my medicine? Keep out of the reach of children. This medicine can be abused. Keep your medicine in a safe place to protect it from theft. Do not share this medicine with anyone. Selling or giving away this medicine is dangerous and against the law. Store at room temperature between 15 and 30 degrees C (59 and 86 degrees F). Protect from light. Keep container tightly closed. Throw away any unused medicine after the expiration date. Discard unused medicine and used packaging carefully. Pets and children can be harmed if they find used or lost packages. What should I tell my health care provider before I take this medicine? They need to know if you have any of these conditions: brain tumor Crohn's disease, inflammatory bowel disease, or ulcerative colitis drink more than 3 alcohol-containing drinks per day drug abuse or addiction head injury heart or circulation problems kidney disease or problems going to the bathroom liver disease lung disease, asthma, or breathing problems an unusual or allergic reaction to acetaminophen, hydrocodone, other opioid analgesics, other medicines, foods, dyes, or preservatives or trying to get breast-feeding What should I watch for while using this medicine? Tell your doctor or health home care attendant if your pain does not go away, if it gets worse, or if you have new or a different type of pain. You may develop tolerance to the medicine. Tolerance means that you will need a higher dose of the medicine for pain relief. Tolerance is normal and is expected if you take the medicine for a long time. Do not suddenly stop taking your medicine because you may develop a severe reaction. Your body becomes used to the medicine. This does NOT mean you are addicted. Addiction is a behavior related to getting and using a drug for a non-medical reason. If you have pain, you have a medical reason to take pain medicine. Your doctor will tell you how much medicine to take. If your doctor wants you to stop the medicine, the dose will be slowly lowered over time to avoid any side effects. You may get drowsy or dizzy when you first start taking the medicine or change doses. Do not drive, use machinery, or do anything that may be dangerous until you know how the medicine affects you. Stand or sit up slowly. There are different types of narcotic medicines (opiates) for pain. If you take more than one type at the same time, you may have more side effects. Give your health care provider a list of all medicines you use. Your doctor will tell you how much medicine to take. Do not take more medicine than directed. Call emergency for help if you have problems breathing. The medicine will cause constipation. Try to have a bowel movement at least every 2 to 3 days. If you do not have a bowel movement for 3 days, call your doctor or health home care attendant. Too much acetaminophen can be very dangerous. Do not take Tylenol (acetaminophen) or medicines that contain acetaminophen with this medicine. Many non-prescription medicines contain acetaminophen. Always read the labels carefully. You have been given the following additional information: Dental Pain Hydrocodone Bitartrate, Acetaminophen Oral tablet (Electronically signed by Brooklynn Zhao P.A.-C 12/12/2016 17:59)
== END 2016-12-12 17:23 | disposition home or self-care (01) ==
LOC: ED SRH 16:47
DX: K08.89 Other specified disorders of teeth and supporting structures (principal); Z88.8 Allergy status to other drugs, medicaments and biological substances